=== PATIENT | female | born 1965 | race Caucasian/White ===

== ENCOUNTER 2019-01-27 08:00 | Outpatient (AMBR) | payer MEDICAID, SELFPAY ==
--- NOTE | 2019-01-20 13:29 | PT.ODAYNRPT ---
PT Outpatient Daily Note Date of Service: January 20, 2019 OP Daily Note Visit Reasons: back pain Outpatient Physical Therapy Treatment Date: 01/20/19 Subjective: A little more LBP since last visit, not sure why Objective: See F/S for therex Mechanical traction L/S x15' at 30 lbs Assessment: Less subjective LBP since starting therapy. Didn't do traction last visit and she's in more pain so will assess next visit to see how she responded after traction today. Plan: Continue per POC Length of Time (minutes) of Treatment: 30 Minutes Office Procedures PT Procedures PT Date of Service: 01/20/19 Traction Mechanical: Yes Therapeutic Exercise 15 minutes: Yes
--- NOTE | 2019-01-27 10:18 | PT.ODS1RPT ---
PT OP Progress/Discharge Note Date of Service: January 27, 2019 Progress Note/DC Note Progress Note/Discharge Note: DC Note Patient Information Visit Reasons: back pain Service Continue Service or Discharge: Discharge Discharge Date: 01/27/19 Status Subjective: After last visit she had insupportable LBP and went to MD who gave her 2 shots. Objective: Trunk AROM: B SM: 18 with pain on L Flexion: 12 from floor Extension: 30% with pain LE strength B HS and Quads: 4/5 Assessment: Pt has attended 5/5 Rx visits and had great response to mechanical traction after the first 2 visits but after last visit she had severe pain episode possibly from traction. She has learned HEP that helps her have less subjective LBP since starting therapy. She has improved trunk extension since starting therapy and can ambulate about 2 blocks and then has to rest. Didn't do traction this visit and she's in more pain. Objective findings are about the same as time of evaluation. Plan: Pt is discharged to provider for further workup Office Procedures PT Procedures PT Date of Service: 01/27/19 Therapeutic Exercise 30 minutes: Yes PT Procedures PT Date of Service: 01/20/19 Traction Mechanical: Yes Therapeutic Exercise 15 minutes: Yes
== END 2019-02-15 23:59 | disposition home or self-care (01) ==
PROVIDERS: PCP Registered Nurse; Referring Provider Registered Nurse; Visit Provider Registered Nurse
DX: M54.5 Low back pain (principal)
CPT/HCPCS: 97012; 97110

== ENCOUNTER → 2025-05-06 | Outpatient (CLI) | payer MEDICAID, SELFPAY ==
--- NOTE | 2025-05-06 | XR_ITS ---
Examination:Right hip AP, lateral, AP pelvis 3 views Technique: Hip AP lateral, AP pelvis, 3 views Exam date and time:01/06/2025 1321 hours INDICATIONS: Right hip pain beginning 2 weeks ago. FINDINGS: Mild to moderate narrowing right and left hip joints Bilateral ossification in the greater trochanteric bursa regions No hip or pelvic fracture IMPRESSION: Mild to moderate bilateral hip osteoarthritis Bilateral greater trochanteric bursitis
== END | disposition home or self-care (01) ==
LOC: CDIM 12:50
DX: M16.0 Bilateral primary osteoarthritis of hip (principal); M70.62 Trochanteric bursitis, left hip; M70.61 Trochanteric bursitis, right hip
CPT/HCPCS: 73502